=== PATIENT | male | born 1950 | race Caucasian/White ===

== ENCOUNTER 2016-05-07 11:00 | Day surgery (SDC) | payer BC ==
[~2016-05-07 11:00] MED LIST: ASPIRIN EC81 MG PO; FISH OIL 1,2001 EAC7 PO; HYDROXYCHLOROQ200 M2 PO; MULTIVITAMIN; VITAMIN E400 UNI4 PO
== END 2016-05-07 15:14 ==
LOC: SRG 11:00 → SHSC 11:06 → ORW 13:00 → SHSC 14:00
PROC: 0HBT0ZX Excision of Right Breast, Open Approach, Diagnostic (ICD-10-PCS; principal; 2016-05-07)
DX: N62 Hypertrophy of breast (principal); M19.90 Unspecified osteoarthritis, unspecified site; Z79.82 Long term (current) use of aspirin; Z79.899 Other long term (current) drug therapy; Z98.890 Other specified postprocedural states
CPT/HCPCS: J0690; J1644